=== PATIENT | female | born 1945 | race Caucasian/White ===

== ENCOUNTER 2017-01-06 11:06 | Outpatient (CLI) | payer MEDICARE | END 2017-01-06 11:07 | disposition home or self-care (01) | DX: E04.1 Nontoxic single thyroid nodule (principal) ==

== ENCOUNTER 2017-01-14 08:52 | Outpatient (CLI) | payer MEDICARE | END 2017-01-14 08:53 | disposition home or self-care (01) | DX: E04.2 Nontoxic multinodular goiter (principal) ==

== ENCOUNTER 2017-08-11 08:44 | Outpatient (CLI) | payer MEDICARE ==
--- NOTE | 2017-08-12 12:45 | Mammography Report ---
DIGITAL SCREENING MAMMOGRAM: 08/11/2017 CLINICAL INDICATION: A 72-year-old nulliparous patient, for screening. COMPARISON: 11/2014, 08/2013, 06/2012, 06/2011. TECHNIQUE: Routine CC and MLO projections were obtained of the breasts. FINDINGS: The breasts demonstrate scattered fibroglandular densities bilaterally. A few punctate, ty pically benign calcifications are present. No suspicious masses, clustered microcalcifications, or re gions of architectural distortion are identified. IMPRESSION: BENIGN FINDINGS. RECOMMENDATION: ROUTINE ANNUAL SCREENING UNLESS OTHERWISE CLINICALLY INDICATED. BIRADS CATEGORY 2-BENIGN FINDINGS. STANDARD QUALIFYING STATEMENTS 1. This examination was reviewed with the aid of Computer-Aided Detection (CAD). 2. A negative or benign imaging report should not delay biopsy if clinically suspicious findings are present. Consider surgical consultation if warranted. More than 5% of cancers are not identified by i maging. 3. Dense breasts may obscure an underlying neoplasm. JOB #: [id number] EXT JOB #:[id number]
== END 2017-08-11 08:45 | disposition home or self-care (01) ==
LOC: DI.S 08:44
PROVIDERS: ATTEND Physician Assistant
DX: Z12.31 Encounter for screening mammogram for malignant neoplasm of breast (principal)
CPT/HCPCS: 77067

== ENCOUNTER 2018-03-16 15:01 | Outpatient (CLI) | payer MEDICARE ==
--- NOTE | 2018-03-17 11:58 | Ultrasound Report ---
PELVIS ULTRASOUND: 03/16/2018 COMPARISON: No comparison. INDICATION: Mid lower abdominal pressure and changes in urination. TECHNIQUE: Transabdominal pelvic ultrasound performed for global evaluation. Transvaginal pelvic ultrasound performed for detailed evaluation. Real-time scanning performed and static images obtained with Doppler. Sonographic evaluation of the pelvis using transabdominal and endovaginal technique. FINDINGS: The uterus measures 5.0 x 2.4 x 1.5 cm. Volume 9 mL There is a small amount of endometrial fluid. There is an echogenic focus about the endometrium of the uterine body that measures 8 x 6 x 3 mm. No free fluid in the pelvis. Ovaries are not seen. No adnexal masses. IMPRESSION: ECHOGENIC FOCUS IN THE ENDOMETRIUM OR ABUTTING THE ENDOMETRIUM; IT IS NONSPECIFIC. IT MAY REPRESENT A POLYP OR A FIBROID. ADDITIONAL WORKUP COULD INCLUDE SONOHYSTEROGRAPHY OR ENDOSCOPIC EXAM. IF CLINICALLY DESIRED, THIS MAY FOLLOWED UP. TD: 03/17/2018 11:57 MTDJohnathan
== END 2018-03-16 15:02 | disposition home or self-care (01) ==
LOC: DI 15:01
PROVIDERS: ATTEND Nurse Practitioner Family
DX: R93.8 Abnormal findings on diagnostic imaging of other specified body structures (principal)
CPT/HCPCS: 76830; 76856

== ENCOUNTER 2018-11-05 09:06 | Emergency (ER) | payer MEDICARE ==
[2018-11-05 09:17] VITALS: BP 142/82
[2018-11-05] MEDS ORDERED: TETANUS/DIPHTHERIA/PERTUSSIS 0.5 ML SYRINGE IM ONE (09:27)
--- NOTE | 2018-11-05 09:31 | ED Physician Documentation ---
PD HPI UPPER EXT INJURY - Stated complaint Stated Complaint: FINGER INFECTION - Chief complaint Chief Complaint: Ext Problem - History obtained from History obtained from: Patient - History of Present Illness Location: Right, Finger Type of injury: Puncture wound (From a wood splinter) Where injury occurred: Home Timing - onset: How many days ago (2) Timing - details: Abrupt onset Pain level max: 0 Pain level now: 0 Improved by: Nothing Worsened by: Other Associated symptoms: Swelling. No: Weakness, Numbness, Tingling, Discolored Contributing factors: No: Anticoagulated, Work related Similar symptoms before: Has not had sx before Recently seen: Not recently seen - Additonal information Additional information: 73-year-old female with history of asthma and subarachnoid hemorrhage related to a fall from a horse 5 years ago here with complaint of right index finger infection. Patient stated she hurt her right index finger 2 days ago with a wood splinter. She attempted to remove the piece of wood and was able to remove everything out. She incise it herself Thinking that the infection may have a pus and did not get anything out. Review of Systems Ten Systems: 10 systems reviewed and negative Constitutional: denies: Fever, Chills, Myalgias Skin: denies: Rash, Lesions, Abrasion (s), Laceration (s), Bite / sting Musculoskeletal: denies: Extremity pain, Joint pain, Extremity swelling, Joint swelling PD PAST MEDICAL HISTORY - Past Medical History Respiratory: Asthma - Past Surgical History Past Surgical History: Yes General: Appendectomy - Present Medications Home Medications: Ambulatory Orders Medication Instructions Recorded Confirmed Bupropion HCl [Budeprion Sr] 150 mg PO 12/20/13 12/20/13 Escitalopram Oxalate [Lexapro] 10 mg PO 12/20/13 12/20/13 Levothyroxine [Synthroid] 100 mcg PO QDAC 12/20/13 12/20/13 Cephalexin [Keflex] 500 mg PO Q6H #28 capsule 11/05/18 - Allergies Allergies/Adverse Reactions: Allergies Allergy/AdvReac Type Severity Reaction Status Date / Time erythromycin base Allergy Severe liver Verified 11/05/18 09:17 [Erythromycin Base] failure Sulfa (Sulfonamide Allergy Rash Verified 11/05/18 09:17 Antibiotics) - Social History Does the pt smoke?: No Smoking Status: Never smoker Does the pt drink ETOH?: No Does the pt have substance abuse?: No - Immunizations Immunizations are current?: Yes Immunizations: TDAP current <10years PD ED PE NORMAL - Vitals Vital signs reviewed: Yes - General General: Alert and oriented X 3, No acute distress, Well developed/nourished - Cardiac Cardiac: RRR, Strong equal pulses - Respiratory Respiratory: No respiratory distress - Derm Derm: Normal color, Warm and dry, No rash - Extremities Extremities: No deformity, No tenderness to palpate, Normal ROM s pain, No edema, Other (Right index finger below the nail there is a nonfluctuant mildly reddened flat area of the skin were patient had incised out the wood splinter. Nontender. No increase in warmth. No drainage.Capillary refill less than 2 seconds. Pulses +2. Full range of motion.) - Neuro Neuro: Alert and oriented X 3, No motor deficit, No sensory deficit - Psych Psych: Normal mood, Normal affect Results - Vitals Vitals: Vital Signs - 24 hr 11/05/18 09:13 Temperature 36.5 C Heart Rate 85 Respiratory 16 Rate Blood Pressure 142/82 H O2 Saturation 100 Oxygen O2 Source Room air PD MEDICAL DECISION MAKING - ED course Complexity details: considered differential (Puncture wound, skin infection, paronychia, cellulitis), d/w patient ED course: Discussed with patient wound care including avoiding incising or expressing or picking on any skin lesions or wound. Stated unable to recall exactly when her last tetanus shot is so she agreed to get one today. We will discharged on Keflex.Instructed to keep the wound clean and dry. If worse will return to the emergency room. Departure - Departure Disposition: 01 Home, Self Care Clinical Impression: Skin infection Condition: Stable Instructions: ED Abscess Abx Tx Only Ch Prescriptions: Cephalexin [Keflex] 500 mg PO Q6H #28 capsule Comments: You are given a tetanus shot today. Take the antibiotic as prescribed. Do not squeeze or incise your right index finger. Follow-up with your primary doctor this week. If worse return to the emergency room. Discharge Date/Time: 11/05/18 09:51
== END 2018-11-05 09:51 | disposition home or self-care (01) ==
LOC: ED 09:06
DX: L08.89 Other specified local infections of the skin and subcutaneous tissue (principal); Z23 Encounter for immunization
CPT/HCPCS: 90471; 99283

== ENCOUNTER 2021-04-15 08:52 | Outpatient (CLI) | payer MEDICARE ==
--- NOTE | 2021-04-15 09:34 | XRAY Report ---
PROCEDURE: Lumbar Spine 2 View INDICATIONS: Acute low back pain TECHNIQUE: 3 views of the lumbar spine were acquired. COMPARISON: None. FINDINGS: Bones: There is 1.2 cm anterolisthesis of L5 on S1. No definite evidence of pars defect. Mild dextros coliosis. Vertebral body heights maintained. Moderate degenerative changes at every level characteriz ed by disc height loss with degenerative endplate change and facet hypertrophy. Soft tissues: Overlying bowel gas pattern is normal. No suspicious soft tissue calcifications. IMPRESSION: Moderate lumbar spine degenerative changes with 1.2 cm anterolisthesis of L5 on S1. No definite vertebral body height loss identified to suggest compression fracture. Limited study secondary to patient's body habitus and technique. If there is continued clinical lynette rn for acute lumbar spine injury, CT or MRI would be recommended. Reviewed by: Jonathan Hargrove MD on 04/15/2021 9:32 AM PDT Approved by: Jonathan Hargrove MD on 04/15/2021 9:32 AM PDT Station ID: [id number]
== END 2021-04-15 08:53 | disposition home or self-care (01) ==
LOC: DI.S 08:52
PROVIDERS: ATTEND Nurse Practitioner Family
DX: M54.5 Low back pain (principal); M47.817 Spondylosis without myelopathy or radiculopathy, lumbosacral region

== ENCOUNTER 2023-09-23 08:00 | Outpatient (CLI) | payer MEDICARE | END 2023-09-23 23:59 | disposition home or self-care (01) | LOC: LAB.S 08:00 | PROVIDERS: ATTEND Emergency Medicine | DX: U07.1 COVID-19 (principal) ==